=== PATIENT | female | born 1965 ===

== ENCOUNTER 2018-04-30 00:41 | Emergency (ER) | payer SELFPAY ==
[2018-04-30 00:48] VITALS: O2SAT 98
--- NOTE | 2018-04-30 01:41 | C.PDOC ---
History Of Present Illness 52 year old female presents to the ED c/o itchy rash that started today at 17: 00. Patient states she ate an empanada with chicken and spinach after which she started feeling itchy. Patient reports having similar episode while she was in [place] which resolved with an unknown medication. Patient denies SOB, lip swelling , tongue swelling, CP, fever, chills. Time Seen by Provider: 04/30/18 00:54 Chief Complaint (Nursing): Abnormal Skin Integrity History Per: Patient History/Exam Limitations: no limitations Onset/Duration Of Symptoms: Hrs Current Symptoms Are (Timing): Still Present Location Of Injury: Right: Arm, Left: Arm, Anterior: Abdomen Quality Of Symptoms: Itching Recent travel outside of the [place]: No Additional History Per: Patient Past Medical History Reviewed: Historical Data, Nursing Documentation, Vital Signs Vital Signs: Last Vital Signs Temp 98.2 F 04/30/18 02:11 Pulse 80 04/30/18 02:11 Resp 20 04/30/18 02:11 BP 120/80 04/30/18 02:11 Pulse Ox 98 04/30/18 06:27 - Medical History PMH: No Chronic Diseases Surgical History: No Surg Hx Family History: States: Unknown Family Hx - Social History Hx Alcohol Use: No Hx Substance Use: No - Immunization History Hx Tetanus Toxoid Vaccination: Yes Hx Influenza Vaccination: Yes Hx Pneumococcal Vaccination: No Review Of Systems Constitutional: Negative for: Fever, Chills ENT: Negative for: Mouth Swelling, Throat Swelling Cardiovascular: Negative for: Chest Pain, Palpitations Respiratory: Negative for: Cough, Shortness of Breath, Wheezing Gastrointestinal: Negative for: Nausea, Vomiting Skin: Positive for: Rash Neurological: Negative for: Weakness, Numbness Physical Exam - Physical Exam Appears: Non-toxic, No Acute Distress Skin: Normal Color, Warm, Dry, Rash (scattered sizes of mildly erythematous urticaria to anterior lower abdomen, lower back and anterior arms. ) Head: Atraumatic, Normacephalic, No Swelling Eye(s): bilateral: Normal Inspection Ear(s): Bilateral: Normal Nose: No Discharge Oral Mucosa: Moist Tongue: No Swelling Lips: No Swelling Throat: Normal, No Erythema, No Exudate Neck: Normal ROM, Supple Chest: Symmetrical Cardiovascular: Rhythm Regular Respiratory: Normal Breath Sounds, No Rales, No Rhonchi, No Wheezing Gastrointestinal/Abdominal: Soft, No Tenderness, No Guarding, No Rebound Extremity: Normal ROM, No Tenderness, No Swelling Neurological/Psych: Oriented x3, Normal Speech, Normal Cognition Gait: Steady ED Course And Treatment O2 Sat by Pulse Oximetry: 98 (On RA) Pulse Ox Interpretation: Normal Medical Decision Making Medical Decision Making: [pt with urticaria to torso and arms, given benadryl, pepcid and prednisone in ed. reports inching decreased, resolved hives on arms, ones on torso with dec redness and size. pt wants to go home. Disposition Counseled Patient/Family Regarding: Diagnosis, Need For Followup, Rx Given - Disposition Referrals: [facility] [Outside] [facility] [Outside] Disposition: HOME/ ROUTINE Disposition Time: 02:02 Condition: IMPROVED Additional Instructions: [place]oke difenhidramina cada 6 horas para picar; Te da sueo, sin conducir. [place] prednisone y pepcid segn lo prescrito. Chance un seguimiento en la clnica o con justice mdico en unos martinez. Regrese a la frances de emergencias por cualquier peor urticaria, dificultad para tragar, hinchazn en la zara o la boca o dificultad para respirar. Take one diphenhydramine every 6 hours for itching; Makes you sleepy, no driving. Take prednisone and pepcid as prescribed. Follow up in clinic or with your doctor in a few days. Return to ER for any worse hives, difficulty swallowing., swelling to face or mouth or trouble breathing. Prescriptions: DiphenhydrAMINE [Benadryl] 25 mg PO Q6 #40 cap Famotidine [Pepcid] 20 mg PO DAILY #14 tab predniSONE [predniSONE Tab] 2 tab PO DAILY #8 tab Instructions: Hives Forms: Gen Discharge Inst Vietnamese, Kixer (Vietnamese) Print Language: PASHTO - Clinical Impression Clinical Impression: Allergic reaction, urticaria - Scribe Statement The provider has reviewed the documentation as recorded by the Scribe Rick Sesay All medical record entries made by the Scribe were at my direction and personally dictated by me. I have reviewed the chart and agree that the record accurately reflects my personal performance of the history, physical exam, medical decision making, and the department course for this patient. I have also personally directed, reviewed, and agree with the discharge instructions and disposition.
[2018-04-30 02:12] VITALS: BP 120/80; PULSE 80; RESP 20; TEMP 98.2
== END 2018-04-30 02:10 | disposition home or self-care (01) ==
LOC: C.ER 00:41
DX: L50.9 Urticaria, unspecified (principal); T78.40XA Allergy, unspecified, initial encounter